=== PATIENT | female | born 1975 | race Two or more races ===

== ENCOUNTER 2023-10-18 02:03 | Emergency (ER) | payer OTHER ==
[~2023-10-18] VITALS: Ht 162.6 cm; Wt 153.3 kg
[2023-10-18] MEDS ORDERED: GLUMETZA1000 MG PO (02:44)
[2023-10-18] MEDS ORDERED: LOSARTAN POTASS25 MG PO (02:45)
[2023-10-18] MEDS ORDERED: SIMVASTATIN10 MG PO (02:45)
[2023-10-18 05:11] LABS: HEMATOCRIT 42.8 % (36.0-45.00); HEMOGLOBIN 14.6 g/dL (12.0-15.00); MEAN CELL VOLUME 89.8 fL (80.00-100.00); MEAN CORPUSCULAR HEMOGLOBIN 30.6 pg (27.00-32.0); PLATELET COUNT 221 K/uL (150-450); RED BLOOD COUNT 4.77 M/uL (4.00-6.00); RED CELL DISTRIBUTION WIDTH 14.4 % (11.5-14.5)
[2023-10-18 05:25] LABS: ALBUMIN 3.5 gm/dL (3.4-5.0); BILIRUBIN TOTAL 0.62 mg/dL (0.3-1.2); CALCIUM 9.2 mg/dL (8.5-10.1); CREATININE SERUM 0.68 mg/dL (0.55-1.02); GFR 91.96; GLOBULINA 3.7 G/DL (2.4-3.5); POTASSIUM 4.85 mEq/L (3.5-5.1); TOTAL PROTEIN 7.2 gm/dL (6.4-8.2)
[2023-10-18 08:13] LABS: PH,URINE 5.5 (5.0-8.0); URINE APPEARANCE Cloudy; URINE BILIRRUBIN Negative (NEGATIVE); URINE BLOOD Negative; URINE COLOR Yellow; URINE GLUCOSE Negative (NEGATIVE); URINE LEUKOCYTE Negative; URINE NITRATE Negative; URINE PROTEIN Negative (NEGATIVE)
[2023-10-18 08:17] LABS: URINE BACTERIA 4039.4 uL (0.0-1933); URINE EPITHELIAL CELLS 153.3 uL (0.0-38.8); URINE RBC 9.9 uL (0.0-20.8); URINE WBC 11.4 uL (0.0-23.2)
[2023-10-18] MEDS ORDERED: INTESTINEX680 M1 PO (09:08)
[2023-10-18] MEDS ORDERED: DICY20TA PO (09:08)
[2023-10-18] MEDS ORDERED: PEPCID AC20 MG PO (09:08)
== END 2023-10-18 09:15 | disposition home or self-care (01) ==
LOC: ER 02:03
PROVIDERS: General Practice
DX: R10.84 Generalized abdominal pain (principal)